=== PATIENT | female | born 1970 | race Caucasian/White ===

== ENCOUNTER 2019-06-17 13:08 | Day surgery (SDC) | payer BC ==
[~2019-06-17 13:08] MED LIST: Buffered Lidocaine 1% SYRIN* 1 ML/SYRINGE INTRADERM ONE; Famotidine IV* 10 MG/ML 2 ML (20 mg) IV ONE; Lactated Ringers 1000 ML Bag* 1,000 ML IV SCH
[2019-06-17] MEDS ORDERED: Famotidine IV* 10 MG/ML 2 ML (20 mg) ONE (13:48)
[2019-06-17] MEDS ORDERED: Ondansetron INJ* 2 MG/ML VIAL ONE (15:51)
[2019-06-17] MEDS ORDERED: Propofol* 10 MG/ML 20 ML BTL ONE (15:51)
[2019-06-17] MEDS ORDERED: Lidocaine 2% PF * 5 ML VIAL ONE (15:51)
[2019-06-17] MEDS ORDERED: fentaNYL* 50 MCG/ML 2 ML VIAL (100 MCG VIAL) ONE (15:51)
[2019-06-17] MEDS ORDERED: Dexamethasone IV* 4 MG/ML 1 ML (4 MG) ONE (15:51)
[2019-06-17] MEDS ORDERED: Midazolam* 1 MG/ML 5 ML VIAL (5 MG) ONE (15:51)
[2019-06-17] MEDS ORDERED: Neostigmine Methylsulfate* 1 MG/ML 10 ML VIAL (1 mg/ml) ONE (16:01)
[2019-06-17] MEDS ORDERED: Glycopyrrolate IV* 0.2 MG/ML 1 ML VIAL ONE (16:01)
[2019-06-17] MEDS ORDERED: Oxymetazoline 0.05% NASAL SPR* 15 ML BTL ONE (16:29)
[2019-06-17] MEDS ORDERED: Lidocaine 4% TOPICAL* 50 ML TOP.SOLN ONE (16:30)
[2019-06-17] MEDS ORDERED: Lidocaine 1% w EPI 1:100,000* MDV 20 ML VIAL ONE (16:30)
[2019-06-17] MEDS ORDERED: Bacitracin OINTMENT* 0.5% 0.5 oz TUBE ONE (16:30)
[2019-06-17] MEDS ORDERED: EPHEDrine (Pressors)* 50 MG/ML VIAL ONE (17:07)
[2019-06-17] MEDS ORDERED: Ondansetron INJ* 2 MG/ML VIAL IV PRN (18:15)
[2019-06-17] MEDS ORDERED: fentaNYL* 50 MCG/ML 2 ML VIAL (100 MCG VIAL) IV PRN (18:15)
[2019-06-17] MEDS ORDERED: Naloxone* 0.4 MG/ML 1 ML VIAL IV PRN (18:15)
[2019-06-17 19:03] VITALS: BP 135/74
--- NOTE | 2019-06-17 22:45 | OP ---
DATE OF OPERATION: 06/17/19 - [facility] DATE OF : 66 ATTENDING SURGEON: Nuno Frausto M.D. MARKETING MGR: None. ANESTHESIA: General with LMA. PRE-OP DIAGNOSIS: Bilateral inferior turbinate hypertrophy. POST-OP DIAGNOSIS: Bilateral inferior turbinate hypertrophy. OPERATIVE PROCEDURE: Outfracture and cautery of the inferior turbinates. INDICATIONS: This is a 48-year-old woman, who has had long-standing problems with nasal airway obstruction. She really has been refractory to medical management. Anatomically, she has large inferior turbinates. The decision was made to proceed with bilateral inferior turbinate reduction surgery. DESCRIPTION OF PROCEDURE: The patient was brought to the operating room. General anesthesia was induced and LMA was placed. The patient was then draped and a time- out performed. Pledgets soaked with Afrin and 4% lidocaine was placed in the each nasal cavity. The inferior turbinates were then infiltrated with approximately 2 cc of 1% lidocaine with 1:100,000 epinephrine, each. Once adequate time had been allotted for vasoconstriction, the procedure was begun. The turbinates were infractured. Multiple passes were made through each turbinate with the Elmed bipolar device. The turbinates were then outfractured. The patient was then returned to the care of the anesthesiologist , extubated, and delivered to the PACU in stable condition. [id number]/[facility] #: [id number] MTDD
== END 2019-06-17 19:15 | disposition home or self-care (01) ==
LOC: OR 13:08
PROVIDERS: ATTEND Otolaryngology
DX: J34.3 Hypertrophy of nasal turbinates (principal); R09.81 Nasal congestion
CPT/HCPCS: 81025; A9270-GY; J1100; J2250; J2405; J2704; J2710; J3010